=== PATIENT | female | born 1985 | race Caucasian/White ===

== ENCOUNTER 2018-01-14 13:46 | Outpatient (CLI) | payer OTHER | END 2018-01-14 13:47 | disposition home or self-care (01) | LOC: BICMAMMO 13:46 | PROVIDERS: ATTEND Family Medicine | DX: N63.11 Unspecified lump in the right breast, upper outer quadrant (principal); Z80.3 Family history of malignant neoplasm of breast | CPT/HCPCS: 77066; G0279 ==